=== PATIENT | male | born 1990 | race African-American/Black ===

== ENCOUNTER 2018-04-26 15:55 | Emergency (ER) | payer BC, MEDICAID ==
[~2018-04-26] VITALS: Ht 167.6 cm; Wt 48.0 kg
[2018-04-26] MEDS ORDERED: IBUPROFEN 600MG TABLET PO ONE (17:00)
[2018-04-26 18:00] LABS: D-DIMER < 0.19 mg/L FEU (<0.50); INR 1.1; PARTIAL THROMBOPLASTIN TIME 32.2 sec (23.4-31.0); PROTHROMBIN TIME 10.9 sec (9.1-11.1)
[2018-04-26 18:08] LABS: BASOPHILS % 1.1 % (0.0-2.0); CHLORIDE 102 mEq/L (98-107); EOSINOPHILS % 2.8 % (0.0-5.0); HEMATOCRIT. 45.3 % (42.0-52.0); HEMOGLOBIN. 15.6 g/dL (14.0-18.0); LYMPHOCYTES % 49.8 % (20.0-50.0); MEAN CORPUSCULAR HEMOGLOBIN 31.5 pg (28.0-32.0); MEAN CORPUSCULAR VOLUME 91.4 fL (80.0-94.0); MEAN PLATELET VOLUME 8.9 fl (7.4-10.4); MONOCYTES % 12.2 % (2.0-8.0); NEUTROPHILS % 34.1 % (40.0-76.0); PLATELET 250 x1000/uL (130-400); RED BLOOD CELL COUNT 4.95 mill/uL (4.7-6.1); RED CELL DISTRIBUTION WIDTH 12.3 % (11.6-14.6)
[2018-04-26 20:31] VITALS: BP 118/77
== END 2018-04-26 20:56 | disposition home or self-care (01) ==
LOC: ER 17:08
DX: S29.011A Strain of muscle and tendon of front wall of thorax, initial encounter (principal); Y93.B2 Activity, push-ups, pull-ups, sit-ups; Y92.89 Other specified places as the place of occurrence of the external cause
CPT/HCPCS: 36415; 71045; 80048; 85025; 85379; 85610; 85730; 93005; 99285